=== PATIENT | female | born 1980 | race Caucasian/White ===

== ENCOUNTER 2017-12-22 20:04 | Emergency (ER) | payer OTHER ==
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
[2017-12-22] MEDS ORDERED: ORPHENADRINE 60MG/2ML INJ IVP ONE (20:30)
[2017-12-22] MEDS ORDERED: NS(*) 0.9% 1000 ML BAG 1,000 ML IV ONE (20:30)
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
[2017-12-22] MEDS ORDERED: CYCL10TA29 PO (22:18)
[2017-12-22] MEDS ORDERED: HYDR-4309 PO (22:18)
[2017-12-22 22:25] VITALS: BP 132/92
[2017-12-22] MEDS ORDERED: CYCLOBENZAPRINE HCL 10 MG TH PO ONE (22:25)
[2017-12-22] MEDS ORDERED: ACET/HYDROC 5/325MG TH ER ONLY 2 TAB/BOTTLE PO ONE (22:25)
== END 2017-12-22 22:28 | disposition home or self-care (01) ==
LOC: ER 20:13
DX: S16.1XXA Strain of muscle, fascia and tendon at neck level, initial encounter (principal); S29.019A Strain of muscle and tendon of unspecified wall of thorax, initial encounter; V89.2XXA Person injured in unspecified motor-vehicle accident, traffic, initial encounter
CPT/HCPCS: 70450; 72125; 72128; 96361; 96374; 99284; J2360; J7030; L0172